=== PATIENT | male | born 1950 | race Caucasian/White ===

== ENCOUNTER 2020-05-20 11:00 | Outpatient (RCR) | payer MEDICARE, OTHER | END 2020-05-26 14:00 | disposition home or self-care (01) | LOC: CARDREHAB 11:00 | DX: Z48.812 Encounter for surgical aftercare following surgery on the circulatory system (principal); I25.10 Atherosclerotic heart disease of native coronary artery without angina pectoris; I25.2 Old myocardial infarction; I35.9 Nonrheumatic aortic valve disorder, unspecified; I10 Essential (primary) hypertension; E78.5 Hyperlipidemia, unspecified; Z95.5 Presence of coronary angioplasty implant and graft ==

== ENCOUNTER 2020-08-17 09:00 | Outpatient (RCR) | payer MEDICARE, OTHER | END 2020-08-26 | disposition home or self-care (01) | LOC: CARDREHAB | DX: Z48.812 Encounter for surgical aftercare following surgery on the circulatory system (principal); Z95.5 Presence of coronary angioplasty implant and graft; I25.2 Old myocardial infarction; I35.9 Nonrheumatic aortic valve disorder, unspecified; I25.10 Atherosclerotic heart disease of native coronary artery without angina pectoris; I10 Essential (primary) hypertension; E78.5 Hyperlipidemia, unspecified ==

== ENCOUNTER 2021-10-27 09:52 | Outpatient (RCR) | payer MEDICARE, OTHER | END 2021-11-24 | disposition still patient (30) | LOC: PT | DX: M25.511 Pain in right shoulder (principal) ==

== ENCOUNTER 2021-10-27 11:00 | Outpatient (RCR) | payer MEDICARE, OTHER | END 2021-11-24 | disposition home or self-care (01) | LOC: CARDREHAB | DX: Z48.812 Encounter for surgical aftercare following surgery on the circulatory system (principal); Z95.5 Presence of coronary angioplasty implant and graft ==

== ENCOUNTER 2021-12-01 11:00 | Outpatient (RCR) | payer MEDICARE, OTHER | END 2021-12-24 | disposition home or self-care (01) | LOC: CARDREHAB | DX: Z48.812 Encounter for surgical aftercare following surgery on the circulatory system (principal); Z95.5 Presence of coronary angioplasty implant and graft ==

== ENCOUNTER 2021-12-06 10:00 | Outpatient (RCR) | payer MEDICARE, OTHER | END 2021-12-24 | disposition home or self-care (01) | LOC: PT | DX: M25.511 Pain in right shoulder (principal) ==

== ENCOUNTER → 2021-12-21 | Day surgery (SDC) | payer MEDICARE, OTHER | END | disposition home or self-care (01) | LOC: MSO 07:12 | DX: H25.811 Combined forms of age-related cataract, right eye (principal); G47.33 Obstructive sleep apnea (adult) (pediatric); E66.01 Morbid (severe) obesity due to excess calories; Z99.89 Dependence on other enabling machines and devices | CPT/HCPCS: 00142; J0171; J2250; J3010; V2632 ==

== ENCOUNTER 2021-12-27 13:24 | Outpatient (RCR) | payer MEDICARE, OTHER | END 2022-01-24 | disposition home or self-care (01) | LOC: CARDREHAB | DX: Z48.812 Encounter for surgical aftercare following surgery on the circulatory system (principal); Z95.5 Presence of coronary angioplasty implant and graft ==

== ENCOUNTER 2022-01-05 14:00 | Outpatient (RCR) | payer MEDICARE, OTHER | END 2022-01-24 | disposition home or self-care (01) | LOC: PT | DX: M25.511 Pain in right shoulder (principal) ==

== ENCOUNTER → 2022-01-18 | Day surgery (SDC) | payer MEDICARE, OTHER | END | disposition home or self-care (01) | LOC: MSO 02:01 | DX: H25.812 Combined forms of age-related cataract, left eye (principal); Z87.891 Personal history of nicotine dependence | CPT/HCPCS: 00142; J0171; J2250; V2632 ==

== ENCOUNTER 2022-01-25 14:00 | Outpatient (RCR) | payer MEDICARE, OTHER | END 2022-02-23 | disposition home or self-care (01) | LOC: CARDREHAB | DX: Z48.812 Encounter for surgical aftercare following surgery on the circulatory system (principal); Z95.5 Presence of coronary angioplasty implant and graft ==

== ENCOUNTER 2022-01-31 10:00 | Outpatient (RCR) | payer MEDICARE, OTHER | END 2022-02-06 17:00 | disposition home or self-care (01) | LOC: PT 10:00 | DX: M25.511 Pain in right shoulder (principal) ==

== ENCOUNTER 2022-02-28 08:00 | Outpatient (RCR) | payer MEDICARE, OTHER | END 2022-03-26 | disposition home or self-care (01) | LOC: CARDREHAB | DX: Z48.812 Encounter for surgical aftercare following surgery on the circulatory system (principal); Z95.5 Presence of coronary angioplasty implant and graft ==

== ENCOUNTER → 2022-04-26 | Outpatient (RCR) | payer MEDICARE, OTHER ==
[~2022-04-26] MED LIST: AMLODIPINE BESYL5 MG PO; ASPIRIN E.C. 8181 MG PO; ATORVASTATIN CA80 MG PO; BASAGLAR K100 UNIT/1 SQ; BENADRYL PO; BREZTRI AEROS10.7 GM IH; BRILINTA90 MG PO; DULOXETINE30 MG PO; FLOMAX0.4 MG PO; FUROSEMIDE20 MG PO; GLIPIZIDE10 M2 PO; ISOSORBIDE MONO60 M2 PO; METFORMIN ER500 MG PO; METOPROLOL SUCC25 M1 PO; NEURONTIN300 MG/CAP PO; NITROGLYCERIN0.4 M1 SL; RANOLAZINE ER500 MG PO
== END ==
LOC: PT
DX: M25.572 Pain in left ankle and joints of left foot (principal)

== ENCOUNTER → 2022-05-08 | Outpatient (CLI) | payer MEDICARE, OTHER ==
[2022-05-08 08:20] LABS: HEMATOCRIT 36.3 % (42.0-52.0); HEMOGLOBIN 11.8 g/dL (13.5-18.0); MEAN PLATELET VOLUME 9.8 fl (7.4-10.4); RED BLOOD COUNT 3.63 M/mm3 (4.20-5.60); RED CELL DISTRIBUTION WIDTH 14.1 % (11.5-14.5); WHITE BLOOD COUNT 5.6 K/mm3 (4.8-10.8)
[2022-05-08 08:28] LABS: ALBUMIN 3.2 g/dL (3.4-4.8); POTASSIUM 4.1 mmol/L (3.5-5.1)
[2022-05-08 08:29] LABS: CALCIUM 9.3 mg/dL (8.3-10.5)
[2022-05-08 08:31] LABS: TOTAL PROTEIN 6.8 g/dL (6.2-8.1)
[2022-05-08 08:33] LABS: TOTAL BILIRUBIN 1.1 mg/dL (0.2-1.2)
== END ==
LOC: LAB 07:55
PROVIDERS: Nurse Practitioner Family
DX: Z01.89 Encounter for other specified special examinations (principal)

== ENCOUNTER → 2022-05-15 | Outpatient (CLI) | payer MEDICARE, OTHER ==
[2022-05-15 08:57] LABS: HEMOGLOBIN 11.2 g/dL (13.5-18.0); RED BLOOD COUNT 3.55 M/mm3 (4.20-5.60); RED CELL DISTRIBUTION WIDTH 13.6 % (11.5-14.5); WHITE BLOOD COUNT 6.1 K/mm3 (4.8-10.8)
[2022-05-15 09:01] LABS: ALBUMIN 3.4 g/dL (3.4-4.8)
[2022-05-15 09:02] LABS: CALCIUM 9.2 mg/dL (8.3-10.5)
== END ==
LOC: LAB 07:52
PROVIDERS: Internal Medicine
DX: Z00.00 Encounter for general adult medical examination without abnormal findings (principal)

== ENCOUNTER → 2022-05-22 | Outpatient (CLI) | payer MEDICARE, OTHER ==
[2022-05-22 08:43] LABS: HEMATOCRIT 33.2 % (42.0-52.0); HEMOGLOBIN 10.8 g/dL (13.5-18.0); MEAN PLATELET VOLUME 9.4 fl (7.4-10.4); RED BLOOD COUNT 3.42 M/mm3 (4.20-5.60); RED CELL DISTRIBUTION WIDTH 13.7 % (11.5-14.5); WHITE BLOOD COUNT 4.2 K/mm3 (4.8-10.8)
[2022-05-22 08:54] LABS: ALBUMIN 3.4 g/dL (3.4-4.8)
[2022-05-22 08:55] LABS: POTASSIUM 3.7 mmol/L (3.5-5.1)
[2022-05-22 08:56] LABS: CALCIUM 9.2 mg/dL (8.3-10.5)
[2022-05-22 08:57] LABS: TOTAL PROTEIN 6.8 g/dL (6.2-8.1)
[2022-05-22 08:59] LABS: TOTAL BILIRUBIN 1.2 mg/dL (0.2-1.2)
== END ==
LOC: LAB 07:44
PROVIDERS: Internal Medicine
DX: Z01.89 Encounter for other specified special examinations (principal)

== ENCOUNTER 2022-06-16 19:34 | Outpatient (RCR) | payer MEDICARE, OTHER ==
[2022-05-27 08:11] VITALS: BP 128/69
[2022-05-27 19:45] VITALS: BP 105/66
[2022-05-28 08:05] VITALS: BP 109/66
[2022-05-28 20:05] VITALS: BP 143/71
[2022-05-29 07:50] VITALS: BP 108/67
[2022-05-29 20:00] VITALS: BP 105/71
[2022-05-30 07:51] VITALS: BP 121/70
[2022-05-30 20:02] VITALS: BP 100/63
[2022-05-31 07:58] VITALS: BP 120/64
[2022-05-31 19:55] VITALS: BP 102/59
[2022-06-01 07:59] VITALS: BP 134/79
[2022-06-01 20:15] VITALS: BP 127/69
[2022-06-02 07:48] VITALS: BP 122/75
[2022-06-02 19:59] VITALS: BP 105/74
[2022-06-03 07:47] VITALS: BP 118/83
[2022-06-03 20:04] VITALS: BP 110/69
[2022-06-04 08:10] VITALS: BP 120/76
[2022-06-04 20:04] VITALS: BP 120/67
[2022-06-05 07:50] VITALS: BP 120/73
[2022-06-05 20:06] VITALS: BP 106/75
[2022-06-06 08:15] VITALS: BP 129/52
[2022-06-07 08:10] VITALS: BP 119/78
[2022-06-07 19:45] VITALS: BP 120/84
[2022-06-08 08:04] VITALS: BP 92/57
[2022-06-08 19:55] VITALS: BP 120/83
[2022-06-09 08:11] VITALS: BP 109/68
[2022-06-09 20:34] VITALS: BP 112/75
[2022-06-10 08:01] VITALS: BP 112/78
[2022-06-10 19:58] VITALS: BP 136/87
[2022-06-11 07:53] VITALS: BP 100/68
[2022-06-11 20:20] VITALS: BP 123/78
[2022-06-12 08:23] VITALS: BP 112/63
[2022-06-12 20:00] VITALS: BP 112/65
[2022-06-13 08:06] VITALS: BP 130/85
[2022-06-13 20:01] VITALS: BP 122/80
[2022-06-14 07:56] VITALS: BP 104/62
[2022-06-14 20:00] VITALS: BP 111/72
[2022-06-15 08:04] VITALS: BP 99/67
[2022-06-15 19:56] VITALS: BP 117/72
[~2022-06-16] VITALS: Ht 180.3 cm; Wt 145.4 kg
[2022-06-16 07:53] VITALS: BP 115/77
[2022-06-16 19:38] VITALS: BP 145/85
[2022-07-08] MEDS ORDERED: DOXYCYCLINE MO100 M3 PO (15:32)
[2022-07-08] MEDS ORDERED: PREDNISONE20 M1 PO (15:34)
[2022-07-08] MEDS ORDERED: MORGIDOX 1X100100 MG PO (15:35)
[2022-07-08] MEDS ORDERED: COMBIVENT RESPI1 SPR IH (15:35)
[2022-07-08] MEDS ORDERED: VIBRAMYCIN HYC100 MG PO (22:18)
[2022-07-08] MEDS ORDERED: PREDNISONE20 MG PO (22:19)
== END 2022-06-26 | disposition home or self-care (01) ==
LOC: AMSURD
DX: Z45.2 Encounter for adjustment and management of vascular access device (principal); R78.81 Bacteremia
CPT/HCPCS: J0692

== ENCOUNTER 2022-08-31 09:51 | Outpatient (RCR) | payer MEDICARE, OTHER ==
[~2022-08-31 09:51] MED LIST changes: +COMBIVENT RESPI1 SPR IH; +DOXYCYCLINE MO100 M3 PO; +MORGIDOX 1X100100 MG PO; +PREDNISONE20 M1 PO; +PREDNISONE20 MG PO; +VIBRAMYCIN HYC100 MG PO
== END 2022-09-26 | disposition home or self-care (01) ==
LOC: PT
DX: M25.572 Pain in left ankle and joints of left foot (principal)

== ENCOUNTER 2022-09-08 12:54 | Outpatient (RCR) | payer MEDICARE, OTHER ==
[~2022-09-08] VITALS: Ht 180.3 cm; Wt 145.4 kg
[2022-09-08 13:36] VITALS: BP 134/91
== END 2022-09-08 14:00 | disposition home or self-care (01) ==
LOC: AMSURD 12:54
DX: T84.59XD Infection and inflammatory reaction due to other internal joint prosthesis, subsequent encounter (principal); Z96.662 Presence of left artificial ankle joint; Z98.1 Arthrodesis status
CPT/HCPCS: 19898

== ENCOUNTER 2022-10-19 10:05 | Emergency (ER) | payer MEDICARE, OTHER ==
[2022-10-19 10:51] LABS: BASO # 0.01 K/mm3 (0.02-0.10); EOS # 0.06 K/mm3 (0.04-0.40); EOS % 1.1 % (0.0-4.0); HEMATOCRIT 30.6 % (42.0-52.0); HEMOGLOBIN 9.5 g/dL (13.5-18.0); LYMPH# 2.25 K/mm3 (1.50-4.00); MEAN CELL VOLUME 93 fl (78-100); MEAN CORPUSCULAR HEMOGLOBIN 29 pg (27-31); MEAN CORPUSCULAR HGB CONC 31 g/dL (33-37); MEAN PLATELET VOLUME 9.2 fl (7.4-10.4); MONO # 0.55 K/mm3 (0.20-0.80); NEU # 2.78 K/mm3 (1.40-6.50); PLATELET COUNT 219 K/mm3 (130-400); RED CELL DISTRIBUTION WIDTH 14.4 % (11.5-14.5); WHITE BLOOD COUNT 5.7 K/mm3 (4.8-10.8)
[2022-10-19 10:53] LABS: ALBUMIN 3.1 g/dL (3.4-4.8); POTASSIUM 4.2 mmol/L (3.5-5.1); SODIUM 137 mmol/L (136-145)
[2022-10-19 10:55] LABS: CALCIUM 9.5 mg/dL (8.3-10.5)
[2022-10-19 10:56] LABS: GLUCOSE 177 mg/dL (75-110); TOTAL PROTEIN 7.4 g/dL (6.2-8.1)
[2022-10-19 10:57] LABS: CARBON DIOXIDE 22 mmol/L (23-31)
[2022-10-19 11:01] LABS: AST-SGOT 17 U/L (5-34)
[2022-10-19 11:02] LABS: ALT/SGPT 15 U/L (0-55)
[2022-10-19 11:10] LABS: TROPONIN-I < 0.030 ng/mL (<0.030)
[2022-10-19 12:47] VITALS: BP 119/76
== END 2022-10-19 12:30 | disposition home or self-care (01) ==
LOC: ED 10:05
PROVIDERS: Physician Assistant
DX: I95.9 Hypotension, unspecified (principal); D64.9 Anemia, unspecified; Z28.310 Unvaccinated for COVID-19

== ENCOUNTER 2022-10-25 08:00 | Outpatient (RCR) | payer MEDICARE, OTHER | END 2022-11-24 | disposition home or self-care (01) | LOC: PT | DX: M25.572 Pain in left ankle and joints of left foot (principal) ==